=== PATIENT | female | born 1955 | race Caucasian/White ===

== ENCOUNTER → 2022-01-10 10:07 | Outpatient (CLI) | payer OTHER, SELFPAY ==
--- NOTE | ~2022-01-10 | XR_ITS ---
XR chest 2V 01/10/2022 10:27 Indication: Left lower lobe pneumonia Procedure: 2 view chest Comparison: 12/01/2017 Findings: Heart size normal. No focal air space disease, pulmonary edema, pleural effusion or suspect ed pneumothorax. Prominent left nipple shadow. The lungs are hyperinflated which is consistent with, but not diagnostic of chronic obstructive pulmonary disease. There is atherosclerosis and ectasia of the aorta. Impression: 1: No acute cardiopulmonary disease. Reviewed, dictated and finalized at location B. Impression: 1: No acute cardiopulmonary disease.
== END ==
PROVIDERS: PCP Family Medicine; Visit Provider Physician Assistant
DX: J18.9 Pneumonia, unspecified organism (principal)
CPT/HCPCS: 71046